=== PATIENT | female | born 1935 | race Caucasian/White ===

== ENCOUNTER 2020-08-15 10:26 | Emergency (ER) | payer MEDICARE ==
[~2020-08-15] VITALS: Ht 162.6 cm; Wt 63.6 kg
--- NOTE | 2020-08-15 10:52 | NUR ---
+ covid test Aug 03, 2020. Was at [facility] from the 01-11.BIB EMS from [facility] for "Feeling Crummy" ABD/Constipation. Pt in bed in gown with cont night monitor, spo2, bp q 30 min, side rails up x2, call light in reach. Went over plan of care from order list, agrees to plan. lab in room
[2020-08-15] MEDS ORDERED: CARV25TA12 PO (11:07)
[2020-08-15] MEDS ORDERED: ATOR-2 PO (11:07)
[2020-08-15] MEDS ORDERED: FEXO180T15 PO (11:07)
[2020-08-15] MEDS ORDERED: LACT10SO28 PO (11:07)
[2020-08-15] MEDS ORDERED: DOXA1TAB2 PO (11:07)
[2020-08-15] MEDS ORDERED: IPRA0.2S35 INH (11:07)
[2020-08-15] MEDS ORDERED: AMLO-211 PO (11:07)
[2020-08-15] MEDS ORDERED: LISI-170 PO (11:07)
[2020-08-15] MEDS ORDERED: RIVA20TA PO (11:07)
[2020-08-15] MEDS ORDERED: PREG100C PO (11:07)
[2020-08-15] MEDS ORDERED: BIOT1TAB3 PO (11:07)
[2020-08-15] MEDS ORDERED: ASPI-515 PO (11:07)
[2020-08-15] MEDS ORDERED: DOCU100C33 PO (11:07)
[2020-08-15 11:14] LABS: BASOPHILS % (AUTO) 1 % (0-1); EOSINOPHILS % (AUTO) 1 % (1-7); LYMPHOCYTES % (AUTO) 18 % (22-44); MEAN CORPUSCULAR HEMOGLOBIN 30.5 pg (27.0-34.8); MEAN CORPUSCULAR HGB CONC 33.2 g/dL (32.4-35.8); MEAN PLATELET VOLUME 9.7 fL (7.4-10.4); MONOCYTES % (AUTO) 9 % (2-9); NEUTROPHILS % (AUTO) 71 % (42-75); PLATELET COUNT 252 x10^3/uL (130-400); RED BLOOD COUNT 4.25 x10^6/uL (3.82-5.3); RED CELL DISTRIBUTION WIDTH 13.2 % (9.6-15.2)
[2020-08-15 11:16] LABS: MD NO
[2020-08-15 11:28] LABS: CHLORIDE 110 mmol/L (98-107)
[2020-08-15 11:39] LABS: ALANINE AMINOTRANSFERASE 19 U/L (12-78); ALBUMIN 3.6 g/dL (3.4-5.0); ALKALINE PHOSPHATASE 59 U/L (45-117); ANION GAP 8 mmol/L (5-15); BILIRUBIN, DIRECT 0.2 mg/dL (0.1-0.2); BILIRUBIN,INDIRECT 0.7 mg/dL (0.0-2.0); BILIRUBIN,TOTAL 0.9 mg/dL (0.2-1.0); CALCIUM 9.2 mg/dL (8.5-10.1); CREATININE 1.18 mg/dL (0.55-1.02); TOTAL PROTEIN 7.2 g/dL (6.4-8.2)
--- NOTE | 2020-08-15 12:23 | NUR ---
Urine cath done and walked to lab
[2020-08-15 12:34] LABS: MICROSCOPIC AUTO
--- NOTE | 2020-08-15 13:14 | NUR ---
TASK RN: SOCIAL WORK IN WITH PT AT THIS TIME
[2020-08-15 14:21] VITALS: BP 124/74
== END 2020-08-15 14:23 | disposition home or self-care (01) ==
LOC: ED 14:06
DX: R53.1 Weakness (principal); K59.00 Constipation, unspecified; I10 Essential (primary) hypertension; E11.9 Type 2 diabetes mellitus without complications; E78.5 Hyperlipidemia, unspecified; G89.29 Other chronic pain
CPT/HCPCS: 36415; 74176; 80048; 80076; 81001; 83690; 85025; 99284

== ENCOUNTER 2021-01-21 07:02 | Emergency (ER) | payer MEDICARE, OTHER ==
[~2021-01-21] VITALS: Ht 162.6 cm; Wt 63.8 kg
[~2021-01-21 07:02] MED LIST: AMLO-211 PO; ASPI-963 PO; ATOR-2 PO; BIOT1TAB3 PO; CARV25TA12 PO; DOCU100C33 PO; DOXA1TAB2 PO; FEXO180T15 PO; IPRA0.2S35 INH; LACT10SO28 PO; LISI-170 PO; PREG100C PO; RIVA20TA PO
[2021-01-21] MEDS ORDERED: SODIUM CHLORIDE FLUSH 10ML SYR IVF ONE (07:30)
[2021-01-21] MEDS ORDERED: MORPHINE SULFATE 4 MG/ML, 1ML IVPush PRN (07:30)
[2021-01-21] MEDS ORDERED: ONDANSETRON 2MG/ML, 2ML IVPush ONE (07:30)
[2021-01-21] MEDS ORDERED: SODIUM CHLORIDE 0.9% 1,000 ML IV ONE (07:30)
--- NOTE | 2021-01-21 07:30 | NUR ---
PT STATES THE PAIN STARTED RIGHT ACROSS THE BOTTOM OF ABD OR PELVIS IT WOKE HER UP AND FELT LIKE AN EXPLOSION IN HER PELIVS. PT FEEL NAUSEA, BUT NO VOMMITING. PT SENT TO RADIOLOGY FOR ABD XRAY. SUMAYA IN LAW IN THE ROOM ALSO.
[2021-01-21 07:38] LABS: BASOPHILS % (AUTO) 1 % (0-1); EOSINOPHILS % (AUTO) 1 % (1-7); LYMPHOCYTES % (AUTO) 10 % (22-44); MEAN PLATELET VOLUME 10.2 fL (7.4-10.4); MONOCYTES % (AUTO) 5 % (2-9); NEUTROPHILS % (AUTO) 84 % (42-75); PLATELET COUNT 190 x10^3/uL (130-400); RED BLOOD COUNT 4.26 x10^6/uL (3.82-5.3)
[2021-01-21 07:49] LABS: ALANINE AMINOTRANSFERASE 18 U/L (12-78); ALBUMIN 3.4 g/dL (3.4-5.0); ANION GAP 8 mmol/L (5-15); CALCIUM 8.9 mg/dL (8.5-10.1); CHLORIDE 108 mmol/L (98-107); CREATININE 1.44 mg/dL (0.55-1.02)
[2021-01-21 07:51] LABS: ALKALINE PHOSPHATASE 72 U/L (45-117); BILIRUBIN,TOTAL 0.6 mg/dL (0.2-1.0); TOTAL PROTEIN 7.2 g/dL (6.4-8.2)
[2021-01-21] MEDS ORDERED: ONDANSETRON 2MG/ML, 2ML ONE (08:39)
[2021-01-21] MEDS ORDERED: MORPHINE SULFATE 4 MG/ML, 1ML ONE (08:40)
--- NOTE | 2021-01-21 08:48 | NUR ---
PT IV STARTED 2OG RIGHT AC. FLUID STARTED MEDICATED. NS STARTED AT 250ML HR. PT TO CT FOR IMAGES
[2021-01-21 08:51] LABS: MICROSCOPIC AUTO
[2021-01-21] MEDS ORDERED: OMNIPAQUE 350 MG/ML, 100ML BOTTLE ONE (09:00)
--- NOTE | 2021-01-21 09:12 | NUR ---
PT BACK FROM CT GIVEN PILLOW AND BROUGHT UP IN BED. PT C/O DRY MOUTH GIVEN SWABS
[2021-01-21] MEDS ORDERED: MAALOX/HYOSCYAMINE/LIDOCAINE 45 ML BTL ONE (09:29)
[2021-01-21] MEDS ORDERED: MAALOX/HYOSCYAMINE/LIDOCAINE 45 ML BTL PO ONE (09:30)
--- NOTE | 2021-01-21 09:30 | NUR ---
PROVIDER AT BEDSIDE TO DISCUSS DISCHARGE AND PLAN OF CARE.
[2021-01-21 10:00] VITALS: BP 153/54
--- NOTE | 2021-01-21 10:02 | NUR ---
PT STATES PAIN HAS GONE DOWN SIGNIFICANTLY AFTER BEING MEDICATATED, AFTER GI COCKTAIL PT STATES HAS NOT NOTICED MUCH OF A DIFFERENCE. VSS CALL REMOTE WITHIN REACH. DAUGHTER IN LAW AT BEDSIDE.
--- NOTE | 2021-01-21 10:23 | NUR ---
Patient given discharge instructions and they have confirmed that they understand the instructions. Patient ambulatory with steady gait. No questions at time of discharge.
== END 2021-01-21 10:25 | disposition home or self-care (01) ==
LOC: ED 07:45
DX: K52.9 Noninfective gastroenteritis and colitis, unspecified (principal); R10.84 Generalized abdominal pain; R11.0 Nausea; I10 Essential (primary) hypertension; E11.9 Type 2 diabetes mellitus without complications; E78.5 Hyperlipidemia, unspecified; G89.29 Other chronic pain; Z88.0 Allergy status to penicillin
CPT/HCPCS: 36415; 74021; 74177; 80053; 81001; 83690; 85025; 96361; 96374; 96375; 99285; J2270; J2405; J7030; Q9967